=== PATIENT | male | born 1970 | race Caucasian/White ===

== ENCOUNTER 2016-07-31 15:52 | Inpatient (IN) | payer OTHER ==
--- NOTE | ~2016-07-31 | DS ---
Discharge Summary [facility] [address] [facility] [place]. [address] NAME: TEAGAN LACKEY : 72 STATUS : DIS IN PAT#: [id number] AGE: 46 ADM/REG DATE : 07/31/16 MR#: [id number] REPORT SERV DATE: 08/02/16 DICTATED BY: GEORGE PEREZ DATE: 08/01/16 REPORT STATUS : Draft TRANSCRIBED BY: MODL DATE: 08/01/16 ADMISSION DATE: 07/31/2016 DISCHARGE DATE: 08/01/2016 Of note, this patient left against medical advice. DISCHARGE DIAGNOSES: 1. Bronchoesophageal fistula. 2. Stage III lung cancer. 3. Anxiety disorder. 4. Severe protein-calorie malnutrition. 5. Chest pain. BRIEF HISTORY OF PRESENT ILLNESS: The patient is a 46-year-old male with stage III lung cancer, status post chemotherapy and radiation, developed a fistula between the remnant of the lung mass and the esophagus, so he was admitted for further workup and treatment. For a detailed history and physical exam, please see my note dictated on 07/31/2016. HOSPITAL COURSE: After being admitted to the hospital, this patient was started on IV fluids. He was given a clear liquid diet and then kept n.p.o. past midnight. This morning, we were awaiting GI consultation and GI had arrived on the floor. The patient was being worked up for a possible EGD either later today or first thing tomorrow morning. This patient was very anxious. He did not want to stay in the hospital. He decided that he was going to leave against AMA. I personally talked to the patient that it would not be in his best interest to leave because his medical condition requires followup and appropriate treatment. Otherwise, he would get significant lung infections or esophageal infections and other complications including from these infections. This patient said that he is willing to take that chance on his own. Gastroenterology nurse practitioner, Heath, was in the room as well and she tried to talk to the patient to see if he was willing to stay for further workup. The family members of the patient also tried, and the patient decided that he was going to leave against medical advice. DISCHARGE DISPOSITION: Home. DISCHARGE ACTIVITY: As tolerated. DISCHARGE DIET: I have not recommended that because the patient left. DISCHARGE MEDICATIONS: The patient was not recommended any new medications. DISCHARGE FOLLOWUP: Will be with Dr. Francisco Gomez if the patient decides to follow up. DICTATED BY: eGorge Perez M.D. Discharge Summary [address] [facility] [address] NAME: TEAGAN LACKEY : 72 STATUS : DIS IN PAT#: [id number] AGE: 46 ADM/REG DATE : 07/31/16 MR#: [id number] REPORT SERV DATE: 08/02/16 DICTATED BY: GEORGE PEREZ DATE: 08/01/16 REPORT STATUS : Draft TRANSCRIBED BY: MODOliver DATE: 08/01/16 SV/ELODIA George Perez M.D. / [id number] CC: Natalie Danielle IV, M.D.
--- NOTE | ~2016-07-31 | HP ---
History And Physical [place] [id number] [facility]. [address] NAME: TEAGAN LACKEY : 72 STATUS : ADM IN [facility]#: [id number] AGE: 46 ADM/REG DATE : 07/31/16 MR#: [id number] REPORT SERV DATE: 07/31/16 DICTATED BY: GEORGE PEREZ DATE: 07/31/16 REPORT STATUS : Draft TRANSCRIBED BY: MODL DATE: 07/31/16 DATE OF ADMISSION: 07/31/2016 CHIEF COMPLAINT: Chest pain. HISTORY OF PRESENT ILLNESS: The patient is a 46-year-old white male with an unfortunate diagnosis of stage III cancer, was given radiation by Dr. Duque, and chemotherapy by Dr. Francisco Gomez. Post completion of his therapy, this patient did well. His mass has significantly shrunk and almost resolved, but he started having significant chest pain after his therapy, so a CT scan of the chest was ordered by Dr. Gomez, which was done three days ago with contrast and it showed an esophagobronchial fistula into the remnant of the mass, so today when the patient reported to Dr. Gomez, the patient was referred here for further treatment and evaluation. This patient reports that he has been having significant pain. He has had no nausea, no vomiting. He has no abdominal pain. He has no shortness of breath. He has not had much coughing. He was given some steroids and at that time, he had some coughing. He denied any fevers, chills, or any other constitutional symptoms except he has had poor appetite. He has not been able to eat and drink as much. He has lost significant amount of weight. His bowels have worked normal. Rest of the review of systems was negative. PAST MEDICAL HISTORY: Significant for tobacco abuse and alcohol abuse, lung cancer stage III. PAST SURGICAL HISTORY: Significant for bronchoscopy. ALLERGIES: NO KNOWN DRUG ALLERGIES. HOME MEDICATIONS: OxyContin extended release and hydrocodone for breakthrough pain. SOCIAL HISTORY: The patient continues to smoke, currently smoking half pack per day, he was smoking one pack per day prior to his diagnosis, he has smoked for many years. He was using alcohol, quit after his diagnosis. No use of other illicit substances. FAMILY HISTORY: Significant for lung cancer in the father, who was also a smoker. PHYSICAL EXAMINATION: GENERAL: White male, lying on the bed, appears to be in no obvious respiratory distress. He is awake, alert. He is oriented. VITAL SIGNS: Vital signs will be reviewed when available from the nursing staff. HEENT: Head is normocephalic, atraumatic. Pupils are equal, round, and reactive to light. Extraocular muscles are intact. Sclerae anicteric. Conjunctivae normal. Oropharynx without lesion. NECK: Supple. No jugular venous distention. No carotid bruits or thyromegaly is appreciated. No lymphadenopathy in the neck is palpable. HEART: Regular rate and rhythm. No murmurs, rubs, or gallops are heard. PMI is History And Physical [address] [address] NAME: TEAGAN LACKEY : 72 STATUS : ADM IN [facility]#: [id number] AGE: 46 ADM/REG DATE : 07/31/16 MR#: [id number] REPORT SERV DATE: 07/31/16 DICTATED BY: GEORGE PEREZ DATE: 07/31/16 REPORT STATUS : Draft TRANSCRIBED BY: ELODIA DATE: 07/31/16 nondisplaced. LUNGS: Fairly clear to auscultation both anteriorly and posteriorly without rales, rhonchi, wheezing, or consolidation. ABDOMEN: Scaphoid, soft, nontender, good bowel sounds. No rebound or guarding. No organomegaly. EXTREMITIES: Without cyanosis, clubbing, or edema. NEUROLOGIC: Exam is completely normal. LABS: All labs are pending at this time. IMPRESSION: 1. Bronchoesophageal fistula. 2. Stage III lung cancer, status post chemotherapy and radiation. 3. Severe protein-calorie malnutrition due to cancer. 4. Chest pain. PLAN: The patient will be admitted. GI consultation will be done by Dr. Ady Mcdaniel for possible endoscopy and further treatment of the fistula. I will go ahead and have the Thoracic Surgery also evaluate the patient in case he would need more invasive intervention. Reasonable pain control with IV pain medications will be given. The patient remains a full code. Home medications will be addressed when available from the Pharmacy. CYDNEY/ELODIA George Perez M.D. / [id number] CC: Natalie Danielle IV, M.D.
--- NOTE | ~2016-07-31 | CN ---
Consultation Report [facility] [address] [place]. [address] NAME: TEAGAN LACKEY : 72 STATUS : DIS IN PAT#: [id number] AGE: 46 ADM/REG DATE : 07/31/16 MR#: [id number] REPORT SERV DATE: 08/01/16 DICTATED BY: ISIDORO SEO JR. DATE: 08/01/16 REPORT STATUS : Draft TRANSCRIBED BY: MODL DATE: 08/01/16 CONSULTATION-HISTORY AND PHYSICAL DATE OF CONSULTATION: 08/01/2016 REASON FOR CONSULTATION: Esophageal fistula. 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 He recently finished radiation therapy and was having some chest pain, which prompted a CT of the chest. CT of the chest on 07/24/2016 demonstrated marked response to prior therapy within the large central mediastinal mass and left hilar nodule as well as a possible esophageal fistula with gas exchange extending from the esophagus into treated subcarinal region. There was also area of consolidation within the right hilum, compatible with radiation pneumonitis, and the patient's vital signs and laboratories are stable. He denies any nausea, vomiting, or persistent cough. We were asked to see him to make recommendations regarding CT findings. PAST MEDICAL HISTORY: Significant for continued tobacco abuse and a history of alcohol abuse as well as stage III lung cancer. PAST SURGICAL HISTORY: Significant for bronchoscopy. ALLERGIES: NO KNOWN DRUG ALLERGIES. MEDICATIONS: Current home medications include hydrocodone and OxyContin as needed for pain. SOCIAL HISTORY: The patient continues to smoke one pack per day and has done so for 30 years. He has a history of alcohol abuse, but has quit drinking since his diagnosis of lung cancer. He denies any illicit drug use. FAMILY HISTORY: Significant for father with lung cancer. REVIEW OF SYSTEMS: Significant for fatigue. A complete 12-point review of systems was performed. All other systems are negative, except for the abovementioned pertinent positives in history of present illness. PHYSICAL EXAMINATION: GENERAL: 46-year-old white male, who is in no acute distress. VITAL SIGNS: Weight 59 kg, height 180 cm, oxygen saturation 98% on room air, blood pressure 117/53, afebrile, heart rate 99. HEENT: Normocephalic and atraumatic. Pupils equal, round, and reactive to light. Ears, nose, and throat without lesions or exudate. NECK: Supple with no lymphadenopathy, JVD, or bruits. Trachea midline. No obvious goiter. Consultation Report [place] [address] [place]. [address] NAME: TEAGAN LACKEY : 72 STATUS : DIS IN PAT#: [id number] AGE: 46 ADM/REG DATE : 07/31/16 MR#: [id number] REPORT SERV DATE: 08/01/16 DICTATED BY: ISIDORO SEO JR. DATE: 08/01/16 REPORT STATUS : Draft TRANSCRIBED BY: ELODIA DATE: 08/01/16 CHEST: Symmetrical with no obvious chest wall deformities. CARDIOVASCULAR: Regular rate and rhythm. S1 and S2. No murmur, rubs, or gallops. RESPIRATORY: Decreased breath sounds bilaterally. ABDOMEN: Soft, nontender, nondistended with positive bowel sounds in all four quadrants. No hepatosplenomegaly. : The patient voids without difficulty. Further examination was deferred. MUSCULOSKELETAL: No obvious kyphosis or scoliosis. SKIN: Warm and dry with normal turgor. No obvious breakdown or lesions noted. NEUROLOGIC: No focal neurological deficits. PSYCHIATRIC: Normal mood and affect. He is pleasant. DATA: CT of the chest dated 07/24/2016 demonstrating marked response to prior therapy with substantial shrinkage of large central mediastinal mass and left hilar nodule. Possible esophageal fistula with gas extending from the esophagus into the treated subcarinal region. Area of consolidation within the right hilum, compatible with radiation pneumonitis. Laboratories dated 08/01/2016, sodium 134, potassium 3.9, BUN 8, creatinine 0.76, glucose 106. White blood cell count 7.4, hemoglobin 10.8, hematocrit 32.5, platelet count 318. PROBLEM LIST: 1. Esophageal fistula.7. 2. Stage III lung cancer, status post radiation therapy and chemotherapy. 3. Protein-calorie malnutrition. IMPRESSION AND PLAN: This is a 46-year-old white male, who is in no acute distress, who was having some chest pressure after completing radiation therapy and underwent a CT of the chest, which showed a possible esophageal fistula at the treated area that does not appear to be communicating within the left pleural space. The patient remains stable with no elevation in his white blood cell count. He denies any persistent cough, nausea, or vomiting. GI is to evaluate the patient and comment on possible need for esophageal stenting. Speaking with Dr. Seo, to be conservative with no treatment given that the patient is asymptomatic. We will await GI evaluation and be available as needed. DICTATED BY: Roma Parry NP AM/ELODIA Isidoro Seo Jr., M.D. / [id number] CC: George Perez M.D. Consultation Report [address] [place]. [address] NAME: TEAGAN LACKEY : 72 STATUS : DIS IN PAT#: [id number] AGE: 46 ADM/REG DATE : 07/31/16 MR#: [id number] REPORT SERV DATE: 08/01/16 DICTATED BY: ISIDORO SEO JR. DATE: 08/01/16 REPORT STATUS : Draft TRANSCRIBED BY: MODL DATE: 08/01/16 Brendan Hawthorne
[~2016-07-31 15:52] MED LIST: ACET500CAP PO; NEXIUM40 PO; NORCO1 TA2 PO
[2016-07-31] MEDS ORDERED: MSCONT15 PO (17:14)
[2016-07-31] MEDS ORDERED: NORCO1 TA2 PO (17:15)
[2016-07-31 18:38] LABS: A/G RATIO 0.6 (0.7-1.9); ALBUMIN 3.3 G/DL (3.5-5.0); ALKALINE PHOSPHATASE 80 U/L (45-117); BUN (BLOOD UREA NITROGEN) 10 MG/DL (6-23); CALCIUM, SERUM 10.2 MG/DL (8.5-10.4); CHLORIDE, SERUM 98 MMOL/L (96-112); CO2 (CARBON DIOXIDE) 27 MMOL/L (24-34); CREATININE 0.87 MG/DL (0.70-1.30); GFR AFRICAN AMERICAN 121 ML/MIN (>=60); GFR NON AFRICAN AMERICAN 104 ML/MIN (>=60); GLOBULIN 5.1 G/DL (2.5-4.1); GLUCOSE, SERUM 86 MG/DL (60-99); PHOSPHORUS, SERUM 3.9 MG/DL (2.5-4.5); SGOT(AST) 10 U/L (5-40); SGPT(ALT) 9 U/L (5-65); SODIUM, SERUM 129 MMOL/L (135-148); TOTAL BILIRUBIN 0.2 MG/DL (0-1.2); TOTAL PROTEIN 8.4 G/DL (6.0-8.5)
[2016-07-31 19:33] LABS: INTERNATIONAL NORMAL RATI 1.2 UNITS (-); PARTIAL THROMBO TIME 39.4 SEC (22.5-37.2)
[2016-07-31 19:48] LABS: PROCALCITONIN <0.05 ng/mL (<0.5)
[2016-08-01 04:07] LABS: BASOPHILS 0.3 %; BASOPHILS ABSOLUTE 0.02 10/3/uL (0.0-0.16); EOSINOPHILS ABSOLUTE 0.22 10/3/uL (0.0-0.53); HEMATOCRIT 32.5 % (40.0-51.0); HEMOGLOBIN 10.8 g/dL (13.6-17.8); IMMATURE GRANULOCYTES 0.4 %; IMMATURE GRANULOCYTES ABSOLUTE 0.03 10/3/uL (0.0-0.11); LYMPHOCYTES 6.6 %; LYMPHOCYTES ABSOLUTE 0.49 10/3/uL (0.67-4.30); MEAN CORPUS HGB CONC 33.2 g/dL (32.0-36.0); MEAN CORPUSCULAR HEMOGLOB 30.3 pg (26.0-34.0); MEAN PLATELET VOLUME 8.2 fL (9.2-13.0); MONOCYTES 13.9 %; MONOCYTES ABSOLUTE 1.03 10/3/uL (0.21-1.20); NEUTROPHILS 75.8 %; NEUTROPHILS ABSOLUTE 5.61 10/3/uL (2.02-8.40); PLATELET COUNT 318 10/3/uL (150-400); RBC DISTRIBUTION WIDTH 15.2 % (12.0-16.0); RED CELL COUNT 3.56 10/6/uL (4.7-6.1)
[2016-08-01 04:08] LABS: MANUAL DIFF NO %; MEAN CORPUSCULAR VOLUME 91.3 fL (80-100); WHITE BLOOD CELLS 7.4 10/3/uL (4.5-10.5)
[2016-08-01 04:20] LABS: ALBUMIN 2.7 G/DL (3.5-5.0); BUN (BLOOD UREA NITROGEN) 8 MG/DL (6-23); CALCIUM, SERUM 9.3 MG/DL (8.5-10.4); CHLORIDE, SERUM 103 MMOL/L (96-112); CO2 (CARBON DIOXIDE) 29 MMOL/L (24-34); CREATININE 0.76 MG/DL (0.70-1.30); GFR AFRICAN AMERICAN 128 ML/MIN (>=60); GFR NON AFRICAN AMERICAN 110 ML/MIN (>=60); PHOSPHORUS, SERUM 3.1 MG/DL (2.5-4.5); POTASSIUM, SERUM 3.9 MMOL/L (3.5-5.3); SODIUM, SERUM 134 MMOL/L (135-148)
[2016-08-01 04:21] LABS: GLUCOSE, SERUM 106 MG/DL (60-99)
[2016-08-29] MEDS ORDERED: NORCO1 TA2 PO (19:30)
[2016-09-13] MEDS ORDERED: PROTONIX PO (14:07)
[2016-09-13] MEDS ORDERED: MUCO10%10 INH (14:09)
[2016-09-13] MEDS ORDERED: ALBUTEROL0.083 % INH (14:10)
[2016-10-23] MEDS ORDERED: MSCONTIN PO (08:37)
== END 2016-08-01 12:02 | disposition home or self-care (01) | DRG 177 ==
LOC: 4EA 15:52
PROVIDERS: Internal Medicine
DX: J86.0 Pyothorax with fistula (principal); E43 Unspecified severe protein-calorie malnutrition; C34.90 Malignant neoplasm of unspecified part of unspecified bronchus or lung; Z68.1 Body mass index [BMI] 19.9 or less, adult; F41.9 Anxiety disorder, unspecified
CPT/HCPCS: 71020; 80053; 80069; 83605; 83615; 83735; 84100; 84145; 85025; 85610; 85730; A9270-GY; J1170

== ENCOUNTER 2016-08-17 21:40 | Emergency (ER) | payer OTHER ==
--- NOTE | ~2016-08-17 | EHP ---
ER History and Physical [place] [address] [facility] [address] [place] [address] NAME: TEAGAN LACKEY : 72 STATUS : DEP ER PAT#: [id number] AGE: 46 ADM/REG DATE : 08/17/16 MR#: [id number] REPORT SERV DATE: 08/18/16 DICTATED BY: REBECCA BRAVO DATE: 08/17/16 REPORT STATUS : Draft TRANSCRIBED BY: MODOliver DATE: 08/17/16 ADDENDUM: Mr. Lackey has lung cancer and a known bronchoesophageal fistula. On chest x-ray, it looked like, he has an early right-sided infiltrate which is concerning for aspiration from this bronchoesophageal fistula. Because of this finding, I wanted Mr. Lackey to stay and receive a dose of IV clindamycin and have lab evaluation. He is unwilling to stay for the result. He is going to allow these labs to be drawn, but he refuses to stay until the results are complete, and he understands that this could be a life-threatening illness that he has and he accepts that risk. He does agree to follow up with the GI doctor that I have already spoken with and says he will return if worse. Again, it was stressed that he needed to stay and for this laboratory evaluation to result and he is unwilling to do so CMR/MODL Rebecca Bravo M.D. / [id number] CC: Brendan Hawthorne
[~2016-08-17 21:40] MED LIST changes: +MSCONT15 PO
[2016-08-17 22:48] LABS: BASOPHILS 0.1 %; BASOPHILS ABSOLUTE 0.01 10/3/uL (0.0-0.16); EOSINOPHILS 3.3 %; EOSINOPHILS ABSOLUTE 0.27 10/3/uL (0.0-0.53); ER CBC TAT 0 Hrs 12 Mins; HEMATOCRIT 34.6 % (40.0-51.0); HEMOGLOBIN 11.1 g/dL (13.6-17.8); IMMATURE GRANULOCYTES 0.1 %; IMMATURE GRANULOCYTES ABSOLUTE 0.01 10/3/uL (0.0-0.11); MANUAL DIFF NO %; MEAN CORPUS HGB CONC 32.1 g/dL (32.0-36.0); MEAN CORPUSCULAR HEMOGLOB 28.8 pg (26.0-34.0); MEAN CORPUSCULAR VOLUME 89.9 fL (80-100); MEAN PLATELET VOLUME 8.2 fL (9.2-13.0); MONOCYTES ABSOLUTE 0.75 10/3/uL (0.21-1.20); NEUTROPHILS 81.5 %; NEUTROPHILS ABSOLUTE 6.76 10/3/uL (2.02-8.40); PLATELET COUNT 409 10/3/uL (150-400); RBC DISTRIBUTION WIDTH 14.1 % (12.0-16.0); RED CELL COUNT 3.85 10/6/uL (4.7-6.1); WHITE BLOOD CELLS 8.3 10/3/uL (4.5-10.5)
[2016-08-17 22:56] LABS: A/G RATIO 0.6 (0.7-1.9); ALBUMIN 3.1 G/DL (3.5-5.0); ALKALINE PHOSPHATASE 83 U/L (45-117); BUN (BLOOD UREA NITROGEN) 13 MG/DL (6-23); CALCIUM, SERUM 9.8 MG/DL (8.5-10.4); CHLORIDE, SERUM 98 MMOL/L (96-112); CO2 (CARBON DIOXIDE) 31 MMOL/L (24-34); CREATININE 0.81 MG/DL (0.70-1.30); GFR AFRICAN AMERICAN 124 ML/MIN (>=60); GFR NON AFRICAN AMERICAN 107 ML/MIN (>=60); GLOBULIN 5.3 G/DL (2.5-4.1); GLUCOSE, SERUM 105 MG/DL (60-99); SGOT(AST) 10 U/L (5-40); SGPT(ALT) < 6 U/L (5-65); SODIUM, SERUM 134 MMOL/L (135-148); TOTAL BILIRUBIN 0.3 MG/DL (0-1.2); TOTAL PROTEIN 8.4 G/DL (6.0-8.5)
[2016-08-29] MEDS ORDERED: NORCO1 TA2 PO (19:30)
[2016-09-13] MEDS ORDERED: PROTONIX PO (14:07)
[2016-09-13] MEDS ORDERED: MUCO10%10 INH (14:09)
[2016-09-13] MEDS ORDERED: ALBUTEROL0.083 % INH (14:10)
[2016-10-23] MEDS ORDERED: MSCONTIN PO (08:37)
== END 2016-08-17 22:42 | disposition home or self-care (01) ==
LOC: ER 21:40
PROVIDERS: Specialist
DX: J86.0 Pyothorax with fistula (principal); J18.9 Pneumonia, unspecified organism; F41.9 Anxiety disorder, unspecified; Z85.118 Personal history of other malignant neoplasm of bronchus and lung; Z79.899 Other long term (current) drug therapy
CPT/HCPCS: 71010; 80053; 83605; 85025; 87040; 99284; A9270-GY